=== PATIENT | female | born 2000 | race Caucasian/White ===

== ENCOUNTER 2025-07-10 14:57 | Emergency (ER) | payer OTHER ==
[2025-07-10] MEDS: Ondansetron 4 MG/2 ML SDV IVPUSH ONE (15:13)
[2025-07-10 15:14] LABS: BASOPHILS ABSOLUTE AUTO 0.0 x10^3/uL (0.0-0.2); BASOPHILS PERCENT AUTO 0.3 % (0.2-1.2); EOSINOPHILS ABSOLUTE AUTO 0.1 x10^3/uL (0.0-0.5); EOSINOPHILS PERCENT AUTO 0.5 % (0.0-4.0); IMMATURE GRAN ABSOLUTE AUTO 0.02 x10^3/uL (0.00-0.07); IMMATURE GRAN PERCENT AUTO 0.10 % (0.00-0.43); LYMPHOCYTES ABSOLUTE AUTO 2.4 x10^3/uL (1.0-4.8); LYMPHOCYTES PERCENT AUTO 16.9 % (25.0-50.0); MONOCYTES ABSOLUTE AUTO 1.1 x10^3/uL (0.0-0.8); MONOCYTES PERCENT AUTO 7.6 % (2.0-11.0); NEUTROPHILS ABSOLUTE AUTO 10.8 x10^3/uL (1.8-7.7); NEUTROPHILS PERCENT AUTO 74.6 % (50.0-80.0); PLATELET COUNT,PLT 245 x10^3/uL (130-400); RED BLOOD CELL COUNT 4.85 x10^6/uL (4.00-5.50); WHITE BLOOD CELL COUNT,WBC 14.4 x10^3/uL (4.0-10.0)
[2025-07-10] MEDS: Ketorolac 15 MG/ML SDV IVPUSH ONE ×2 (15:15→17:26)
[2025-07-10 15:33] LABS: APPEARANCE,URINE CLEAR (CLEAR); GLUCOSE,URINE NEGATIVE (NEGATIVE); OCCULT BLOOD,URINE MODERATE (NEGATIVE)
[2025-07-10 15:39] LABS: A/G RATIO 1.24; ALANINE AMINOTRANSFERASE,ALT 21 U/L (14-59); ASPARTATE AMNIOTRANSFERASE,AST 18 U/L (15-37); BILIRUBIN TOTAL 0.5 mg/dL (0.2-1.0); BLOOD UREA NITROGEN,BUN 11 mg/dL (7-18); CARBON DIOXIDE,CO2 21 mmol/L (21-32); CHLORIDE,CL 103 mmol/L (98-107); CREATININE 0.6 mg/dL (0.55-1.02); ESTIMATED GFR 128 mL/min (>=60); GLUCOSE RANDOM 109 mg/dL (70-99); POTASSIUM,K 3.4 mmol/L (3.5-5.1); PROTEIN TOTAL,TP 7.6 g/dL (6.4-8.2); SODIUM,NA 140 mmol/L (136-145)
[2025-07-10 15:44] LABS: SQUAMOUS EPITHELIAL CELLS,UR FEW /HPF (NOT SEEN)
[2025-07-10] MEDS: Take Home: Ondansetron 4 MG Tab.DIS, 5 Tab Pack PO ONE (17:12)
[2025-07-10] MEDS: Take Home: Ketorolac 10 MG Tab, 4 Tab Pack PO ONE (17:12)
== END 2025-07-10 17:34 | disposition home or self-care (01) ==
LOC: VM.ED 14:57
DX: N13.2 Hydronephrosis with renal and ureteral calculous obstruction (principal); Z79.899 Other long term (current) drug therapy
CPT/HCPCS: 74176; 80053; 81001; 81025; 85025; 96374; 96375; 96376; 99284; 99284-25; A9270-GY; J1885; J2405; Q0162